=== PATIENT | female | born 1935 | race Caucasian/White ===

== ENCOUNTER 2022-12-19 15:01 | Observation (INO) | payer MEDICARE, SELFPAY ==
[2022-12-19 15:07] VITALS: BP 200/98; PULSE 86; RESP 18; TEMP 36.5; O2SAT 94; BMI 26.6
--- NOTE | 2022-12-19 15:14 | XR_ITS ---
The [address] [address] Patient Name: DAVE THRASHER MRN: [id number] date: 1935 Sex: F Assigned Patient Location: ER Current Patient Location: ER Accession/Order Number: [id number] Exam Date: 12/19/2022 15:30 Report Date: 12/19/2022 16:17 At the request of: PETER HAMLIN Procedure: XR knee RT 2V IMAGES REVIEWED: XR knee RT 2V COMPARISON: None available. CLINICAL INDICATION: FALL FINDINGS/IMPRESSION: 1. Acute intra-articular fracture of the mid patella demonstrating apex anterior angulation and mild displacement. 2. Otherwise the right knee appears intact. 3. Osteopenia. Moderate degenerative change of the medial compartment. Chondrocalcinosis. Electronically authenticated by: DEVIKA COUGHLIN Date: 12/19/2022 16:17
--- NOTE | 2022-12-19 15:14 | XR_ITS ---
The [address] [address] Patient Name: DAVE THRASHER MRN: [id number] date: 1935 Sex: F Assigned Patient Location: ER Current Patient Location: ER Accession/Order Number: [id number] Exam Date: 12/19/2022 15:30 Report Date: 12/19/2022 16:24 At the request of: PETER HAMLIN Procedure: XR shoulder LT min 2V IMAGES REVIEWED: XR shoulder LT min 2V COMPARISON: None available. CLINICAL INDICATION: FALL FINDINGS/IMPRESSION: 1. Acute comminuted fracture of the left proximal humerus. Acute fracture of the surgical neck demonstrating approximately 2 cm foreshortening and anteromedial displacement. 2. Acute fracture of the humeral head would be better evaluated with follow-up CT. There is a questionable curvilinear lucency overlying the medial aspect of the humeral head on the first view. 3. The humeral head appears high riding, with the superolateral extent of the humeral head overlying the acromion on the first view limiting evaluation for fracture. May suggest age-indeterminate rotator cuff tear. 4. No definite dislocation. On the transscapular Y view the humeral head does not appear dislocated. 5. Osteopenia. Electronically authenticated by: DEVIKA COUGHLIN Date: 12/19/2022 16:24
--- NOTE | 2022-12-19 15:43 | ED.FALL1 ---
HPI - Fall General Chief Complaint: Fall Stated Complaint: FELL Time Seen by Provider: 12/19/22 15:06 Source: patient Mode of arrival: Wheelchair Limitations: no limitations History of Present Illness HPI Narrative: The patient fell in her garage just [employer] while she was carrying a basket of items. She injured her left shoulder and right knee when she landed and is now unable to move the left shoulder. She also bit her tongue and has a laceration. She takes aspirin daily. No injury to the head or neck. No back pain. No LOC. The right knee has a small scrape just proximal to the patella and localizes pain to the patella. The left shoulder pain is all over . Related Data Allergies Allergy/AdvReac Type Severity Reaction Status Date / Time No Known Allergies AdvReac Mild Verified 12/19/22 15:07 [facility] Medical History (Updated 12/19/22 @ 16:48 by Peter Hamlin) Social History Smoking status: Never smoker Exam Narrative Exam Narrative: Nurses note and vital signs reviewed and patient is not hypoxic. afebrile General: The patient appears well and in no apparent distress. Patient is resting comfortably on cart. GCS = 15. Skin: Warm, dry, no pallor noted. Head: Normocephalic, atraumatic Neck: Supple, trachea mid-line. Full ROM and no cervical spinal tenderness. Eyes: PERRLA, EOMI ENT: TMs clear, no hemotympanum detected. V shaped laceration to the left anterior tongue with slow bleeding. No dental injury noted. No facial injury noted Cardiovascular: Regular Rate and Rhythm Respiratory: Patient is in no distress, no accessory muscle use, lungs are clear to auscultation, no wheezing, rales or rhonchi Chest Wall: no tenderness, no flail chest, contusion, abrasion, or signs of trauma. Back: No thoracic or lumbar tenderness to palpation. Negative straight leg raise bilaterally. Musculoskeletal: Soft tissue and bony tenderness throughout the left shoulder and she keeps the left UE held in adduction and internal rotation with flexion at the elbow. She has some distal clavicular tenderness. Left humerus, elbow, wrist and hand unremarkable. Right knee with a superficial abrasion just proximal to the patella. Pain with patellar manipulation. No additional right knee tenderness. No additional sign of long bone fracture. No LE swelling or ecchymosis, no pelvic tenderness. Pulses intact GI: No tenderness to palpation. No rebound, guarding, or rigidity noted. 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 Psychiatric: Cooperative Constitutional Vital Signs, click to edit/add: Last Vital Signs Temp 97.7 F 12/19/22 15:07 Pulse 86 12/19/22 15:07 Resp 18 12/19/22 15:07 BP 168/102 H 12/19/22 16:23 Pulse Ox 94 L 12/19/22 15:07 O2 Del Method Room Air 12/19/22 15:07 Course Vital Signs Vital signs: Vital Signs Temperature 97.7 F 12/19/22 15:07 Pulse Rate 86 12/19/22 15:07 Respiratory Rate 18 12/19/22 15:07 Blood Pressure 200/98 H 12/19/22 15:07 Pulse Oximetry 94 L 12/19/22 15:07 Oxygen Delivery Method Room Air 12/19/22 15:07 Temperature 97.7 F 12/19/22 15:07 Pulse Rate 86 12/19/22 15:07 Respiratory Rate 18 12/19/22 15:07 Blood Pressure 168/102 H 12/19/22 16:23 Pulse Oximetry 94 L 12/19/22 15:07 Oxygen Delivery Method Room Air 12/19/22 15:07 MDM - Fall MDM Narrative Medical decision making narrative: xrays of the right knee and left shoulder obtained. I sutured the patient's tongue to close the laceration - see above. The patient sustained acute fractures of the right patella and of the left humeral head and humeral surgical neck. The patient will not be able to care for herself at home with these injuries. Case discussed with Dr Reilly and I sent him images of the xrays at his request. he will be a oracle [employer] plm consultant on the case Call placed to the on-call admitting physician, Dr Desouza, who agreed to admit the patient. Patient and family informed of our findings, diagnosis and need for admission. Imaging Data xr right knee: Radiologist's impression: Patient Name: DAVE THRASHER MRN: [id number] date: 1935 Sex: F Assigned Patient Location: ER Current Patient Location: ER Accession/Order Number: [id number] Exam Date: 12/19/2022 15:30 Report Date: 12/19/2022 16:17 At the request of: PETER HAMLIN Procedure: XR knee RT 2V IMAGES REVIEWED: XR knee RT 2V COMPARISON: None available. CLINICAL INDICATION: FALL FINDINGS/IMPRESSION: 1. Acute intra-articular fracture of the mid patella demonstrating apex anterior angulation and mild displacement. 2. Otherwise the right knee appears intact. 3. Osteopenia. Moderate degenerative change of the medial compartment. Chondrocalcinosis. Electronically authenticated by: DEVIKA COUGHLIN Date: 12/19/2022 16:17 xr left shoulder: Radiologist's impression: Patient Name: DAVE THRASHER MRN: [id number] date: 1935 Sex: F Assigned Patient Location: ER Current Patient Location: ER Accession/Order Number: [id number] Exam Date: 12/19/2022 15:30 Report Date: 12/19/2022 16:24 At the request of: PETER HAMLIN Procedure: XR shoulder LT min 2V IMAGES REVIEWED: XR shoulder LT min 2V COMPARISON: None available. CLINICAL INDICATION: FALL FINDINGS/IMPRESSION: 1. Acute comminuted fracture of the left proximal humerus. Acute fracture of the surgical neck demonstrating approximately 2 cm foreshortening and anteromedial displacement. 2. Acute fracture of the humeral head would be better evaluated with follow-up CT. There is a questionable curvilinear lucency overlying the medial aspect of the humeral head on the first view. 3. The humeral head appears high riding, with the superolateral extent of the humeral head overlying the acromion on the first view limiting evaluation for fracture. May suggest age-indeterminate rotator cuff tear. 4. No definite dislocation. On the transscapular Y view the humeral head does not appear dislocated. 5. Osteopenia. Electronically authenticated by: DEVIKA COUGHLIN Date: 12/19/2022 16:24 Discharge Plan Discharge Chief Complaint: Fall Clinical Impression: Closed fracture of neck of left humerus, Laceration of tongue, Closed fracture of right patella Patient Disposition: Admitted As Inpatient Time of Disposition Decision: 16:48 Additional Instructions: addmitted to Dr Desouza; Dr Reilly consulting Procedures ED Laceration Laceration Laceration 1: Additional comments: Laceration repair: All of the procedure was done under sterile conditions. Wound anesthetized with local injection of approximately 3mL of lidocaine 1% with epinephrine. The wound was explored to depth and found to be free of foreign material. The laceration wound edges were well-approximated and did not require revision. Wound closed with 3 sterile 2-0 chromic gut sutures in simple interrupted fashion. Patient tolerated the procedure well. The patient was neurovascularly intact post-repair. The sutures will dissolve and will not require removal.
[2022-12-19] MEDS: LIDOCAINE HCL 1%-EPINEPHRINE 1:100,000 10 ML MDV INJ (16:00)
[2022-12-19 16:23] VITALS: BP 168/102
[2022-12-19 17:15] VITALS: BP 155/90
[2022-12-19 18:01] VITALS: BP 167/95; PULSE 73; RESP 20; TEMP 36.4; O2SAT 93; O2SAT 94; BMI 26.4
[2022-12-19 18:19] LABS: Basophils Percent Auto 0.2 % (0.2-2.0); Eosinophils Percent Auto 0.3 % (0.9-7.0); Hematocrit 37.9 % (36.0-48.0); Hemoglobin 12.3 g/dL (12.0-16.0); Immature Granulocytes Abs Auto 0.04 10^3/uL (0.00-0.03); Immature Granulocytes Pct Auto 0.3 % (0.0-0.5); Lymphocytes Absolute Auto 0.8 10^3/uL (1.2-3.8); Lymphocytes Percent Auto 6.8 % (20.5-60.0); Mean Corpuscular HGB Conc 32.5 g/dL (29.9-35.2); Mean Corpuscular Hemoglobin 28.1 pg (26.7-34.0); Mean Corpuscular Volume 86.7 fL (81.0-99.0); Mean Platelet Volume 10.1 fL (9.5-13.5); Monocytes Absolute Auto 0.5 10^3/uL (0.3-0.8); Neutrophils Absolute Auto 10.6 10^3/uL (1.4-6.5); Neutrophils Percent Auto 88.4 % (43.0-75.0); Platelet Count 210 10^3/uL (150-450); Red Blood Count 4.37 10^6/uL (4.20-5.40)
[2022-12-19 18:31] LABS: Alanine Aminotransferase 18 U/L (14-59); Albumin Globulin Ratio 1.1; Alkaline Phosphatase 67 U/L (46-116); Anion Gap 13.6; Aspartate Amino Transferase 17 U/L (15-37); BUN Creatinine Ratio 23.1; Bilirubin Total 0.3 mg/dL (0.2-1.0); Calcium 8.9 mg/dL (8.5-10.1); Carbon Dioxide 25.4 mmol/L (21.0-32.0); Chloride 104 mmol/L (98-107); Estimated GFR (African America >60 (>=60); Estimated GFR (Non-African Ame >60 (>=60); Globulin 3.6 g/dL; Glucose 143 mg/dL (74-106); Sodium 139 mmol/L (136-145); Total Protein 7.6 g/dL (6.4-8.2)
[2022-12-19] MEDS: ENOXAPARIN SODIUM 40 MG/0.4 ML SYRINGE SUBQ (20:46)
--- NOTE | 2022-12-19 20:58 | PC.NURSE ---
Tongue swollen and bruised. Speech slighltly slurred
[2022-12-19 21:08] VITALS: O2SAT 93
[2022-12-19] MEDS: ATORVASTATIN CALCIUM 10 MG TABLET PO (21:29)
[2022-12-19 21:30] VITALS: BP 139/83; PULSE 83; RESP 20; TEMP 36.5; O2SAT 91
[2022-12-20] VITALS (7 sets, daily range): BP systolic 123–146; BP diastolic 63–74; PULSE 69–76; RESP 16–20; TEMP 36.9–37.1; O2SAT 91–95
[2022-12-20] MEDS: MORPHINE SULFATE 2 MG/ML SYRINGE IV (03:02)
[2022-12-20] MEDS: ONDANSETRON PF 4 MG/2 ML VIAL IV (05:26)
[2022-12-20] MEDS: LEVOTHYROXINE SODIUM 25 MCG TABLET 50 MCG PO (07:46)
[2022-12-20] MEDS: FLUTICASONE PROPIONATE 50 MCG NASAL SPRAY 1 SPRAY NS (08:50)
[2022-12-20] MEDS: LISINOPRIL 10 MG TABLET PO (08:50)
[2022-12-20] MEDS: ENOXAPARIN SODIUM 40 MG/0.4 ML SYRINGE SUBQ (08:51)
--- NOTE | 2022-12-20 12:23 | P.HP_ITS ---
H&P: HPI History of Present Illness Chief complaint: Fall/fracture Narrative: 87 y o female had a mechanical fall outside her sons house and fell resulting in left humeral fx and right patellar rx. Denies head trauma, LOC. She is visiting her son from [place] and lives with her . She was admitted overnight for pain control, lack of discharge plan as she is NWB on right knee, can't use a walker due to humeral fx and her is unable to carry her at his age. Patient's pain is well controlled and she is doing reasonably well from that point of view. Discussed with patient about rehab placement vs going to home with a wheelchair. Patient was surprised that her orthopedic fx do not warrant inpatient operative intervention. I have placed a call out for orthopedic surgeon vocational psychologist to discuss the patient's case with him to help navigate discharge planning more effectively. Regardless, it seems like she will have to stay overnight until tomorrow for case management and social service manager to work out a feasible and safe discharge plan. Review of Systems ROS Status of ROS 10 or more systems reviewed and unremarkable except as noted in history and below [facility] Medical History (Updated 12/20/22 @ 12:33 by Shaikh Lyly MD) Surgical History Family History Father Family history of CHF (congestive heart failure) Family history of cancer Mother Family history of hypertension Family history of stroke Social History Within the past year, how often did you have a drink containing alcohol: 4 or more times a week Within the past year, how many standard drinks containing alcohol did you have on a typical day: 1 or 2 Within the past year, how often did you have six or more drinks on one occasion: never Total score: 0 Score interpretation: Questions 2 and 3 are 0. It can be assumed that the patient's drinking is below the recommended limits. However, please confirm the accuracy of the patient's alcohol intake over the last few months. Smoking status: Never smoker Non-prescribed substance use: denies use Previous occupational history: retired Highest level of school completed/degree received: Bachelor's degree Are you now , , , , never or living with a partner: Little interest or pleasure in doing things: not at all Feeling down, depressed, or hopeless: not at all Feel stressed/tense/nervous/anxious/difficulty sleeping: only a little Do you think of yourself as: straight/heterosexual Gender Identity: female Meds Home Medications and Allergies Home Medications Medication Instructions Recorded Confirmed Type albuterol sulfate 90 mcg/actuation 1 puff inhalation Q4H PRN 12/19/22 12/19/22 History aerosol inhaler shortness of breath or wheezing atorvastatin 10 mg tablet 10 mg PO .qhs 12/19/22 12/19/22 History fluticasone 250 mcg-salmeterol 50 1 inh inhalation Q12H 12/19/22 12/19/22 History mcg/dose blistr powdr for inhalation (Wixela Inhub) fluticasone propionate 50 1 spray intranasal QDAY 12/19/22 12/19/22 History mcg/actuation nasal spray,suspension levothyroxine 50 mcg tablet 50 mcg PO QDAY 12/19/22 12/19/22 History lisinopril 10 mg tablet 10 mg PO QDAY 12/19/22 12/19/22 History Allergies Allergy/AdvReac Type Severity Reaction Status Date / Time No Known Allergies AdvReac Mild Verified 12/19/22 15:07 Exam Constitutional Vital Signs, click to edit/add: Last Vital Signs Temp 98.4 F 12/20/22 05:26 Pulse 73 12/20/22 05:26 Resp 18 12/20/22 05:26 BP 146/74 H 12/20/22 05:26 Pulse Ox 94 L 12/20/22 07:11 O2 Del Method Room Air 12/20/22 07:11 Documenting provider has reviewed patient's vital signs: yes Common normals: no apparent distress and oriented x3 General appearance: cooperative HENMT Common normals: normocephalic and head/scalp atraumatic Head and scalp: normocephalic and atraumatic Eye Common normals: conjunctivae normal and no scleral icterus Conjunctiva: conjunctiva(e) normal Respiratory Common normals: normal respiratory effort and clear to auscultation bilaterally Effort & inspection: able to speak in complete sentences Auscultation: clear to auscultation bilaterally Cardio Common normals: regular rate, S1 normal heart sound and S2 normal heart sound Rate: regular rate Heart sounds: S1 normal and S2 normal GI Common normals: Normal to inspection, nondistended, normoactive bowel sounds present, soft to palpation, non-tender and no hepatosplenomegaly Palpation: soft and no hepatosplenomegaly Extremity Common normals: no clubbing, cyanosis or edema Left upper extremity: upper arm (in a sling, immobilized due to humeral fx. ) Right lower extremity: knee joint (patellar fx, RLE immobilized) Neuro Common normals: oriented x3, moves all extremities and no focal motor deficits Psych Common normals: mental status grossly normal, denies hallucinations, denies homicidal ideation and denies suicidal ideation Results Labs Labs: Short CBC 12/19/22 Range/Units 06:13 WBC 12.0 H (4.0-11.0) 10^3/uL Hgb 12.3 (12.0-16.0) g/dL Hct 37.9 (36.0-48.0) % Plt Count 210 (150-450) 10^3/uL BMP 12/19/22 06:13 Sodium 139 Potassium 4.0 Chloride 104 Carbon Dioxide 25.4 BUN 18.0 Creatinine 0.78 Glucose 143 H Calcium 8.9 Liver Function 12/19/22 Range/Units 06:13 Total Bilirubin 0.3 (0.2-1.0) mg/dL AST 17 (15-37) U/L ALT 18 (14-59) U/L Alkaline Phosphatase 67 (46-116) U/L Albumin 4.0 (3.4-5.0) g/dL Assessment and Plan Assessment and Plan (1) Closed fracture of neck of left humerus: Qualifiers: Encounter type: subsequent encounter Fracture healing: with routine healing Qualified Code(s): S42.212D - Unspecified displaced fracture of surgical neck of left humerus, subsequent encounter for fracture with routine healing (2) Closed fracture of right patella: Qualifiers: Encounter type: subsequent encounter Fracture morphology: unspecified fracture morphology Fracture alignment: displaced Fracture healing: with routine healing Qualified Code(s): S82.001D - Unspecified fracture of right patella, subsequent encounter for closed fracture with routine healing (3) High cholesterol: (4) Hypertension: (5) Hypothyroidism: (6) H/O: CVA (cerebrovascular accident): (7) COPD (chronic obstructive pulmonary disease): Plan Left humeral, right patellar fx. Pain reasonably controlled. PT/OT eval. DVT px. Orthopedic consulted. Patient will need rehab placement if she ends up going with her to [place]. They have extended family in [place] and they were contemplating staying in [place] at one of their kids house if she can't go to rehab so that her has more help at home. Resume her home meds. Mild leukocytosis noted, likely reactive. coordinator of genetic services consulted.
[2022-12-20] MEDS: ATORVASTATIN CALCIUM 10 MG TABLET PO (21:09)
[2022-12-21 03:58] VITALS: O2SAT 91
[2022-12-21] MEDS: LEVOTHYROXINE SODIUM 25 MCG TABLET 50 MCG PO (05:44)
[2022-12-21 05:58] VITALS: BP 149/66; PULSE 78; RESP 18; TEMP 37.2; O2SAT 92
[2022-12-21 08:00] VITALS: PULSE 72; RESP 16; O2SAT 92
[2022-12-21] MEDS: LISINOPRIL 10 MG TABLET PO (08:57)
[2022-12-21] MEDS: FLUTICASONE PROPIONATE 50 MCG NASAL SPRAY 1 SPRAY NS (08:59)
[2022-12-21] MEDS: ENOXAPARIN SODIUM 40 MG/0.4 ML SYRINGE SUBQ (08:59)
--- NOTE | 2022-12-21 09:26 | SWNOTE1 ---
VICENTE recevied message from case management and pt is from [place] and has commercial insurance that facilities around here would not be in network with due to it [place] state. Family is willing to pay out of packet for rehab. They would like the cost for [facility]. VICENTE to reach out to [facility].
--- NOTE | 2022-12-21 09:33 | SWNOTE1 ---
Giovanni banuelos Portis is going to check out of network benefits, SW sent over face sheet and insurance card.
--- NOTE | 2022-12-21 09:57 | CM.NOTE ---
Rounds made with Dr. Desouza, family wishing to go skilled at discharge. Messaged [facility] SW to look into insurance and family also requesting [facility] for therapy. Explained to family Reid would be in to speak with them once we had more information.
--- NOTE | 2022-12-21 10:40 | PM.IMPN1 ---
Progress Note: A&P Assessment and Plan (1) Closed fracture of neck of left humerus: Assessment and Plan: NWB, immobilize. Non surgical as per Orthopedics Pain is well controlled Qualifiers: Encounter type: subsequent encounter Fracture healing: with routine healing Qualified Code(s): S42.212D - Unspecified displaced fracture of surgical neck of left humerus, subsequent encounter for fracture with routine healing (2) Closed fracture of right patella: Assessment and Plan: Able to bear weight with knee immobilized. Pain is controlled. Non surgical as per Orthopedics. Qualifiers: Encounter type: subsequent encounter Fracture alignment: displaced Fracture healing: with routine healing Fracture morphology: unspecified fracture morphology Qualified Code(s): S82.001D - Unspecified fracture of right patella, subsequent encounter for closed fracture with routine healing (3) High cholesterol: Assessment and Plan: C/w home meds (4) Hypertension: Assessment and Plan: C/w home meds (5) Hypothyroidism: Assessment and Plan: C/w synthyroid (6) H/O: CVA (cerebrovascular accident): Assessment and Plan: No residual deficit (7) COPD (chronic obstructive pulmonary disease): Assessment and Plan: No wheezing. stable. Plan Working on disposition. Patient would like to go to rehab in [place] instead of [place]. Medically stable for d/c and once a reasonable plan of care is finalized, will discharge the patient. Internal Medicine - PN: Subj Subjective Interval history: Seen and examined. No overnight events. Pain is well controlled. Exam Constitutional Vital Signs, click to edit/add: Last Vital Signs Temp 98.9 F 12/21/22 05:58 Pulse 72 12/21/22 08:00 Resp 16 12/21/22 08:00 BP 149/66 H 12/21/22 05:58 Pulse Ox 92 L 12/21/22 08:00 O2 Del Method Room Air 12/21/22 08:00 Documenting provider has reviewed patient's vital signs: yes Common normals: no apparent distress and oriented x3 General appearance: cooperative HENMT Common normals: normocephalic and head/scalp atraumatic Head and scalp: normocephalic and atraumatic Eye Common normals: conjunctivae normal and no scleral icterus Conjunctiva: conjunctiva(e) normal Respiratory Common normals: normal respiratory effort and clear to auscultation bilaterally Effort & inspection: able to speak in complete sentences Auscultation: clear to auscultation bilaterally Cardio Common normals: regular rate, S1 normal heart sound and S2 normal heart sound Rate: regular rate Heart sounds: S1 normal and S2 normal GI Common normals: Normal to inspection, nondistended, normoactive bowel sounds present, soft to palpation, non-tender and no hepatosplenomegaly Palpation: soft and no hepatosplenomegaly Extremity Common normals: no clubbing, cyanosis or edema Left upper extremity: upper arm (in a sling, immobilized due to humeral fx. ) Right lower extremity: knee joint (patellar fx, RLE immobilized) Neuro Common normals: oriented x3, moves all extremities and no focal motor deficits Psych Common normals: mental status grossly normal, denies hallucinations, denies homicidal ideation and denies suicidal ideation Urinary Catheter Management Urinary Catheter Management Urethral: Cath placed during this visit: yes Urethral indwelling: No Reason for continuing: prolonged immobilization Insertion date: 12/19/22 Insertion time: 18:47
--- NOTE | 2022-12-21 10:53 | SWNOTE1 ---
VICENTE spoke with Giovanni at [facility] and pt has same in and out of network benefits and they will just need to submit precert and get the approval, no private pay. SW to send over referral. VICENTE spoke with pt's son and and let them know about precert, they would like to move forward with [facility] and they are going to go visit [facility] around lunch, SW notified Giovanni.
[2022-12-21] MEDS: MAALOX (MAG HYDROX/ALUMINUM HYD/SIMETH) 30 ML ORAL.SUSP PO (11:28)
[2022-12-21] MEDS: DOCUSATE SODIUM 100 MG CAPSULE PO (11:29)
--- NOTE | 2022-12-21 11:59 | SWNOTE1 ---
Bailey started to [facility].
[2022-12-21 13:50] VITALS: BP 121/65; PULSE 73; RESP 22; TEMP 37.2; O2SAT 94
[2022-12-21 14:00] VITALS: BP 121/65; PULSE 73; RESP 22; TEMP 37.2; O2SAT 94
--- NOTE | 2022-12-21 16:42 | SWNOTE1 ---
Pt is approved to go. VICENTE sent message to doctor and he is alright with pt being discharged. VICENTE spoke with pt and and they have not seen orthopedic yet. VICENTE let doctor know. As VICENTE was leaving, Dr. Reilly was coming room. VICENTE let doctor know and let nursing know to call SW if pt is being discharged.
--- NOTE | 2022-12-21 17:04 | PM.ORCN ---
History of Present Illness HPI Consult date: 12/21/22 Consult reason: fracture (Left shoulder pain and right knee pain) Chief complaint: Fall/fracture Narrative: Patient is an 87-year-old who fell on December 19. She had the acute onset of left shoulder and right knee pain. She was transported to the emergency room where x-rays revealed a left proximal wrist fracture and right patella fracture. Orthopedics was consulted for recommendations. She does not report any pain elsewhere. She does not report paresthesias. Review of Systems ROS Constitutional Denies: fever or chills Cardiovascular Denies: chest pain Respiratory Denies: shortness of breath Gastrointestinal Denies: abdominal pain Genitourinary Reports: other (Self catheters) Musculoskeletal Reports: joint pain Neurological Denies: numbness in extremities [facility] Medical History (Updated 12/20/22 @ 12:33 by Shaikh Lyly MD) Surgical History Family History Father Family history of CHF (congestive heart failure) Family history of cancer Mother Family history of hypertension Family history of stroke Social History Within the past year, how often did you have a drink containing alcohol: 4 or more times a week Within the past year, how many standard drinks containing alcohol did you have on a typical day: 1 or 2 Within the past year, how often did you have six or more drinks on one occasion: never Total score: 0 Score interpretation: Questions 2 and 3 are 0. It can be assumed that the patient's drinking is below the recommended limits. However, please confirm the accuracy of the patient's alcohol intake over the last few months. Smoking status: Never smoker Non-prescribed substance use: denies use Previous occupational history: retired Highest level of school completed/degree received: Bachelor's degree Are you now , , , , never or living with a partner: Little interest or pleasure in doing things: not at all Feeling down, depressed, or hopeless: not at all Feel stressed/tense/nervous/anxious/difficulty sleeping: only a little Do you think of yourself as: straight/heterosexual Gender Identity: female Meds Home Medications and Allergies Home Medications Medication Instructions Recorded Confirmed Type albuterol sulfate 90 mcg/actuation 1 puff inhalation Q4H PRN 12/19/22 12/19/22 History aerosol inhaler shortness of breath or wheezing atorvastatin 10 mg tablet 10 mg PO .qhs 12/19/22 12/19/22 History fluticasone 250 mcg-salmeterol 50 1 inh inhalation Q12H 12/19/22 12/19/22 History mcg/dose blistr powdr for inhalation (Wixela Inhub) fluticasone propionate 50 1 spray intranasal QDAY 12/19/22 12/19/22 History mcg/actuation nasal spray,suspension levothyroxine 50 mcg tablet 50 mcg PO QDAY 12/19/22 12/19/22 History lisinopril 10 mg tablet 10 mg PO QDAY 12/19/22 12/19/22 History Allergies Allergy/AdvReac Type Severity Reaction Status Date / Time No Known Allergies AdvReac Mild Verified 12/19/22 15:07 Exam Narrative Exam Narrative: Left shoulder skin is intact. Ecchymosis that is moderate in the upper arm. Palpable radial pulse. Able to wiggle her fingers. Normal sensation. Right knee exam reveals skin is intact. Minimal swelling. No ecchymosis. Tender over patella. Grossly distal neurovascular intact. Constitutional Vital Signs, click to edit/add: Last Vital Signs Temp 98.9 F 12/21/22 14:00 Pulse 73 12/21/22 14:00 Resp 22 12/21/22 14:00 BP 121/65 12/21/22 14:00 Pulse Ox 94 L 12/21/22 14:00 O2 Del Method Room Air 12/21/22 14:00 Results Labs Labs: H & H 12/19/22 Range/Units 06:13 Hgb 12.3 (12.0-16.0) g/dL Hct 37.9 (36.0-48.0) % All other labs normal. Diagnostic results Shoulder x-ray: other (I reviewed the x-rays of her left shoulder which show a reduced glenohumeral joint with a proximal humerus fracture with over 50% displacement of the shaft anterior to the head.) Knee x-ray: other (X-rays of her knee reviewed and show a minimally angulated fracture of the patella without distraction of the fracture fragments.) Assessment and Plan Assessment and Plan (1) Closed fracture of neck of left humerus: Qualifiers: Encounter type: subsequent encounter Fracture healing: with routine healing Qualified Code(s): S42.212D - Unspecified displaced fracture of surgical neck of left humerus, subsequent encounter for fracture with routine healing (2) Closed fracture of right patella: Qualifiers: Encounter type: subsequent encounter Fracture alignment: displaced Fracture healing: with routine healing Fracture morphology: unspecified fracture morphology Qualified Code(s): S82.001D - Unspecified fracture of right patella, subsequent encounter for closed fracture with routine healing (3) High cholesterol: (4) Hypertension: (5) Hypothyroidism: (6) H/O: CVA (cerebrovascular accident): (7) COPD (chronic obstructive pulmonary disease): Plan For her left proximal humerus fracture and right patella fracture I have advised against any surgical intervention. I discussed with the patient that surgically aligning the proximal humerus fracture would not improve functional outcome. I have also discussed for her patellar fracture given no displacement of the fracture fragments the treatment for this would be nonoperatively with knee maintained in full extension. She may weight-bear weight through the right lower extremity but not with her knee bent. For her shoulder no active or passive shoulder motion. No weightbearing through the left upper extremity. Okay to actively move her elbow once pain allows. She has been encouraged to move her fingers to avoid any stiffness. I discussed with the patient that she should follow-up in my office in 1 week to repeat x-rays of her right knee and left shoulder.
== END 2022-12-21 19:35 ==
LOC: ER 17:30 → MS 21:57
PROVIDERS: Admitting Provider Internal Medicine; Emergency Provider Emergency Medicine; Visit Provider Internal Medicine
DX: S42.212A Unspecified displaced fracture of surgical neck of left humerus, initial encounter for closed fracture (principal); S82.001A Unspecified fracture of right patella, initial encounter for closed fracture; E78.00 Pure hypercholesterolemia, unspecified; I10 Essential (primary) hypertension; E03.9 Hypothyroidism, unspecified; J44.9 Chronic obstructive pulmonary disease, unspecified; S01.512A Laceration without foreign body of oral cavity, initial encounter; Z86.73 Personal history of transient ischemic attack (TIA), and cerebral infarction without residual deficits; W19.XXXA Unspecified fall, initial encounter; Z79.899 Other long term (current) drug therapy; Z79.890 Hormone replacement therapy
CPT/HCPCS: 36415; 51702; 73030; 73560; 80053; 85025; 94640; 94761; 96372; 96374; 96375; 97161; 97165; 99285; G0378

== ENCOUNTER 2022-12-30 10:43 | Outpatient (OUT) | payer MEDICARE, SELFPAY ==
--- NOTE | 2022-12-30 10:54 | XR_ITS ---
[address] [address] Patient Name: DAVE THRASHER MRN: [id number] date: 1935 Sex: F Assigned Patient Location: [facility] Current Patient Location: [facility] Accession/Order Number: [id number] Exam Date: 12/30/2022 11:10 Report Date: 12/30/2022 11:52 At the request of: DUDLEY ALEXANDER Procedure: XR knee RT 2V EXAM: XR knee RT 2V HISTORY: Knee Pain COMPARISON: 12/19/2022 TECHNIQUE: 3 views Findings/impression: No significant change from prior exam. Redemonstration of minimally displaced intra-articular fracture of the mid aspect of the patella. Soft tissue swelling. Electronically authenticated by: ALYCIA CHING Date: 12/30/2022 11:52
--- NOTE | 2022-12-30 10:54 | XR_ITS ---
[address] [address] Patient Name: DAVE THRASHER MRN: [id number] date: 1935 Sex: F Assigned Patient Location: [facility] Current Patient Location: [facility] Accession/Order Number: [id number] Exam Date: 12/30/2022 11:10 Report Date: 12/30/2022 11:49 At the request of: DUDLEY ALEXANDER Procedure: XR shoulder LT min 2V EXAM: XR shoulder LT min 2V HISTORY: Closed Nondisplaced Fracture Of End Left Numerus COMPARISON: 12/19/2022 TECHNIQUE: 3 views Findings/impression: No significant change from the prior exam. Comminuted displaced fracture of the proximal humerus with no significant healing. Soft tissue swelling. Electronically authenticated by: ALYCIA CHING Date: 12/30/2022 11:49
== END 2022-12-30 10:44 | disposition home or self-care (01) ==
LOC: RAD 10:48
PROVIDERS: Visit Provider Orthopaedic Surgery
DX: S42.295A Other nondisplaced fracture of upper end of left humerus, initial encounter for closed fracture (principal); M25.562 Pain in left knee; M25.561 Pain in right knee
CPT/HCPCS: 73030; 73560

== ENCOUNTER 2023-01-11 08:58 | Outpatient (OUT) | payer MEDICARE, SELFPAY ==
--- NOTE | 2023-01-11 09:35 | XR_ITS ---
[address] [address] Patient Name: DAVE THRASHER MRN: [id number] date: 1935 Sex: F Assigned Patient Location: [facility] Current Patient Location: [facility] Accession/Order Number: [id number] Exam Date: 01/11/2023 09:20 Report Date: 01/11/2023 10:24 At the request of: DUDLEY ALEXANDER Procedure: XR knee RT 2V EXAM: XR knee RT 2V HISTORY: Acute Pain Of Right Knee M25.561 COMPARISON: 12/30/2022 TECHNIQUE: 2 views Findings/impression: No significant change from prior exam. Minimally displaced intra-articular fracture of the patella. Soft tissue swelling. Electronically authenticated by: ALYCIA CHING Date: 01/11/2023 10:24
--- NOTE | 2023-01-11 09:35 | XR_ITS ---
The [address] [address] Patient Name: DAVE THRASHER MRN: [id number] date: 1935 Sex: F Assigned Patient Location: [facility] Current Patient Location: [facility] Accession/Order Number: [id number] Exam Date: 01/11/2023 09:20 Report Date: 01/11/2023 14:03 At the request of: DUDLEY ALEXANDER Procedure: XR shoulder LT min 2V EXAM: XR shoulder LT min 2V HISTORY: Nondisplaced Fracture Of Proximal End Of Left Humerus COMPARISON: 12/30/2022 TECHNIQUE: Left shoulder 2 FINDINGS: Left proximal displaced humerus fracture again not measurably change in alignment. Some subtle changes of healing noted. XR/XR shoulder LT min 2V IMPRESSION: Healing left proximal humerus fracture with unchanged displacement Electronically authenticated by: TRI RENTERIA Date: 01/11/2023 14:03
== END 2023-01-11 08:59 | disposition home or self-care (01) ==
LOC: RAD 08:58
PROVIDERS: Visit Provider Orthopaedic Surgery
DX: M25.561 Pain in right knee (principal); S42.295A Other nondisplaced fracture of upper end of left humerus, initial encounter for closed fracture
CPT/HCPCS: 73030; 73560

== ENCOUNTER 2024-04-01 11:33 | Emergency (ER) | payer MEDICARE, SELFPAY ==
[2024-04-01 11:51] VITALS: BP 148/72; PULSE 81; TEMP 36.9; O2SAT 95; BMI 26.6
[2024-04-01 12:29] LABS: Bilirubin Urine NEGATIVE (NEGATIVE); Blood Urine SMALL (NEGATIVE); Clarity Urine CLOUDY (CLEAR); Color Urine LT. YELLOW (YELLOW); Glucose Urine UA NEGATIVE (NEGATIVE); Ketones Urine NEGATIVE (NEGATIVE); Leukocyte Esterase Urine LARGE (NEGATIVE); Nitrite Urine POSITIVE (NEGATIVE); Protein Urine TRACE mg/dL (NEG/TRACE); Specific Gravity Urine 1.015 (1.005-1.025); Urobilinogen Urine 0.2 EU/dL (0.2-1.0)
[2024-04-01 12:30] LABS: Urine Microscopic Indicated YES
[2024-04-01 12:35] LABS: WBC Urine 75-100 #/HPF (NONE SEEN)
[2024-04-01 12:36] LABS: Bacteria Urine MODERATE #/HPF (NONE SEEN); Cast Seen? NONE SEEN #/LPF (NONE SEEN); Crystals Seen? None Seen #/HPF (None Seen); Mucus Urine TRACE (NONE SEEN); Squamous Epithelial Cell Urine RARE #/LPF (NONE/RARE); Transitional Epi Cells Urine RARE #/LPF (NONE SEEN); Urine Culture Indicated YES
--- NOTE | 2024-04-01 12:48 | ED_ITS ---
HPI - Female Genitourinary General Chief complaint: Urogenital-Female Stated complaint: WEAKNESS, FALL, R LOWER LEG PAIN Time Seen by Provider: 04/01/24 11:57 Source: patient and family Mode of arrival: Wheelchair Limitations: no limitations History of Present Illness HPI Narrative: The patient have a history of chronic self cathing after she has been having incontinence for a while, patient also had a history of recurring UTIs coming to the ER after she thinks that her urine color is different and that she could be having UTI as she always feels weak and tired with her urine infection She mentioned that she was walking yesterday when she had her left knee give up No head injury no loss of consciousness The patient denies any pain when walking Related Data Home Medications ?Medication ?Instructions ?Recorded ?Confirmed albuterol sulfate 90 mcg/actuation 1 puff inhalation Q4H PRN 12/19/22 12/19/22 aerosol inhaler shortness of breath or wheezing atorvastatin 10 mg tablet 10 mg PO .qhs 12/19/22 12/19/22 fluticasone 250 mcg-salmeterol 50 1 inh inhalation Q12H 12/19/22 12/19/22 mcg/dose blistr powdr for inhalation (Wixela Inhub) fluticasone propionate 50 1 spray intranasal QDAY 12/19/22 12/19/22 mcg/actuation nasal spray,suspension levothyroxine 50 mcg tablet 50 mcg PO QDAY 12/19/22 12/19/22 lisinopril 10 mg tablet 10 mg PO QDAY 12/19/22 12/19/22 Previous Rx's ?Medication ?Instructions ?Recorded cephalexin 500 mg capsule 500 mg PO Q8H 7 days #21 caps 04/01/24 Allergies Allergy/AdvReac Type Severity Reaction Status Date / Time bee venom protein (honey bee) Allergy Severe Anaphylaxis Verified 04/01/24 11:51 Review of Systems ROS Status of ROS 10 or more systems reviewed and unremark able except as noted in history and below [facility] Medical History (Updated 04/01/24 @ 12:45 by Serene Callejas MD) COPD (chronic obstructive pulmonary disease) ?J44.9 - Chronic obstructive pulmonary disease, unspecified (ICD-10) H/O: CVA (cerebrovascular accident) ?Z86.73 - Personal history of transient ischemic attack (TIA), and cerebral infarction without residual deficits (ICD-10) Tear of meniscus of right knee ?S83.206A - Unspecified tear of unspecified meniscus, current injury, right knee, initial encounter (ICD-10) Closed fracture of right patella ?S82.001A - Unspecified fracture of right patella, initial encounter for closed fracture (ICD-10) Laceration of tongue ?S01.512A - Laceration without foreign body of oral cavity, initial encounter (ICD-10) Closed fracture of neck of left humerus ?S42.212A - Unspecified displaced fracture of surgical neck of left humerus, initial encounter for closed fracture (ICD-10) Osteoporosis ?M81.0 - Age-related osteoporosis without current pathological fracture (ICD- 10) Cervical cancer ?C53.9 - Malignant neoplasm of cervix uteri, unspecified (ICD-10) Arthritis ?M19.90 - Unspecified osteoarthritis, unspecified site (ICD-10) Anxiety ?F41.9 - Anxiety disorder, unspecified (ICD-10) Asthma ?J45.909 - Unspecified asthma, uncomplicated (ICD-10) CVA (cerebral vascular accident) ?I63.9 - Cerebral infarction, unspecified (ICD-10) Hypertension ?I10 - Essential (primary) hypertension (ICD-10) High cholesterol ?E78.00 - Pure hypercholesterolemia, unspecified (ICD-10) Hypothyroidism ?E03.9 - Hypothyroidism, unspecified (ICD-10) Surgical History H/O: hysterectomy ?Z90.710 - Acquired absence of both cervix and uterus (ICD-10) Family History Father Family history of CHF (congestive heart failure) Family history of cancer Mother Family history of hypertension Family history of stroke Social History Within the past year, how often did you have a drink containing alcohol: 4 or more times a week Within the past year, how many standard drinks containing alcohol did you have on a typical day: 1 or 2 Within the past year, how often did you have six or more drinks on one occasion: never Total score: 0 Score interpretation: Questions 2 and 3 are 0. It can be assumed that the patient's drinking is below the recommended limits. However, please confirm the accuracy of the patient's alcohol intake over the last few months. Smoking status: Never smoker Non-prescribed substance use: denies use Previous occupational history: retired Highest level of school completed/degree received: Bachelor's degree Are you now , , , , never or living with a partner: Little interest or pleasure in doing things: not at all Feeling down, depressed, or hopeless: not at all Feel stressed/tense/nervous/anxious/difficulty sleeping: only a little Do you think of yourself as: straight/heterosexual Gender Identity: female Exam Narrative Exam Narrative: Nurses notes and vital signs reviewed and patient is not hypoxic. General: Well-appearing and in no apparent distress. Skin: Warm, dry, no pallor noted. No rash. Head: Normocephalic, atraumatic. Neck: Supple, non-tender. Cardiovascular: Regular Rate and Rhythm without murmur, gallop or rub. Respiratory: No accessory muscle use or respiratory distress. Lungs are clear to auscultation, no wheezing, rales or rhonchi Chest Wall: no tenderness Back: No midline thoracic or lumbar vertebral tenderness. No CVA tenderness Musculoskeletal: normal ROM, no calf or popliteal tenderness, no lower extremity edema/swelling GI: Abdomen is soft, non-distended. Normal bowel sounds. No masses appreciated. No tenderness to palpation. No rebound, guarding, or rigidity noted. Neurological: A&O x4. No cranial nerve dysfunction observed. No truncal atax ia. Moves all extremities. Sensation intact. Psychiatric: Cooperative and interactive. Normal mood and affect. Constitutional Vital Signs, click to edit/add: Last Vital Signs Temp 98.4 F 04/01/24 11:51 Pulse 81 04/01/24 11:51 Resp 18 04/01/24 11:51 BP 148/72 H 04/01/24 11:51 Pulse Ox 95 04/01/24 11:51 O2 Del Method Room Air 04/01/24 11:51 Course Vital Signs Vital signs: Vital Signs Temperature 98.4 F 04/01/24 11:51 Pulse Rate 81 04/01/24 11:51 Respiratory Rate 18 04/01/24 11:51 Blood Pressure 148/72 H 04/01/24 11:51 Pulse Oximetry 95 04/01/24 11:51 Oxygen Delivery Method Room Air 04/01/24 11:51 Temperature 98.4 F 04/01/24 11:51 Pulse Rate 81 04/01/24 11:51 Respiratory Rate 18 04/01/24 11:51 Blood Pressure 148/72 H 04/01/24 11:51 Pulse Oximetry 95 04/01/24 11:51 Oxygen Delivery Method Room Air 04/01/24 11:51 MDM - Female Genitourinary MDM Narrative Medical decision making narrative: I could not appreciate any pain on examination of the lower extremity The patient urine shows possible urine infection signs she have no systemic signs of infection He was started on Keflex instructed about hydration and monitoring her symptoms she also was advised that in case of any fever chills or any new symptoms she is to come back to the ER The patient is to follow up with primary care physician in next 2-3 days or to return to the emergency department should any of the signs or symptoms worsen or new symptoms develop. The patient agrees with the following Diagnosis and Treatment plan and the patient will be discharged home. Lab Data Labs: Lab Results 04/01/24 Range/Units 12:00 Urine Color Lt. yellow (YELLOW) Urine Clarity Cloudy A (CLEAR) Urine pH 6.0 (5.0-9.0) Ur Specific [place] 1.015 (1.005-1.025) Urine Protein Trace (NEG/TRACE) mg/dL Urine Glucose (UA) Negative (NEGATIVE) mg/dL Urine Ketones Negative (NEGATIVE) mg/dL Urine Occult Blood Small A (NEGATIVE) Urine Nitrite Positive A (NEGATIVE) Urine Bilirubin Negative (NEGATIVE) Urine Urobilinogen 0.2 (0.2-1.0) EU/dL Ur Leukocyte Esterase Large A (NEGATIVE) Urine RBC 2-5 A (0-2) #/HPF Urine WBC 75-100 A (NONE SEEN) #/HPF Ur Squamous Epith Cells Rare (NONE/RARE) #/LPF Ur Transition Epith Cell Rare A (NONE SEEN) #/LPF Urine Crystals None seen (None Seen) #/HPF Urine Bacteria Moderate A (NONE SEEN) #/HPF Urine Casts None seen (NONE SEEN) #/LPF Urine Mucus Trace A (NONE SEEN) Ur Culture Indicated? Yes Discharge Plan Discharge Chief Complaint: Urogenital-Female Clinical Impression: Urinary tract infection Patient Disposition: Home, Self-Care Time of Disposition Decision: 12:45 Condition: Good Prescriptions / Home Meds: New cephalexin 500 mg capsule 500 mg PO Q8H 7 Days Qty: 21 0RF No Action atorvastatin 10 mg tablet 10 mg PO .qhs levothyroxine 50 mcg tablet 50 mcg PO QDAY lisinopril 10 mg tablet 10 mg PO QDAY albuterol sulfate 90 mcg/actuation HFA aerosol inhaler 1 puff INHALATION Q4H PRN (Reason: shortness of breath or wheezing) fluticasone propionate 50 mcg/actuation spray,suspension 1 spray INTRANASAL QDAY fluticasone propion-salmeterol [Wixela Inhub] 250-50 mcg/dose blister with device 1 inh INHALATION Q12H Print Language: Nepali Instructions: Catheter-associated Urinary Tract Infection (ED) Referrals: Physician,Non-Staff, MD [Primary Care Provider] - 1 week Discharge Date/Time: 04/01/24 12:59
[2024-04-01] MEDS: CEPHALEXIN 500 MG CAPSULE PO (12:53)
== END 2024-04-01 12:59 | disposition home or self-care (01) ==
PROVIDERS: Emergency Provider Emergency Medicine
DX: N39.0 Urinary tract infection, site not specified (principal); Z87.440 Personal history of urinary (tract) infections; Z90.710 Acquired absence of both cervix and uterus
CPT/HCPCS: 81001; 87086; 87150; 87186; 99283